=== PATIENT | female | born 1965 | race Caucasian/White ===

== ENCOUNTER 2022-07-31 06:16 | Day surgery (SDC) | payer OTHER, BC, SELFPAY ==
[2022-07-31] VITALS (17 sets, daily range): BP systolic 117–170; BP diastolic 70–98; PULSE 61–81; RESP 16; TEMP 36.1; O2SAT 91–98; BMI 36.1
[2022-07-31] MEDS: SODIUM CHLORIDE 0.9 % (FLUSH) 10 ML SYRINGE IVF (06:45)
[2022-07-31] MEDS: LACTATED RINGERS 1000 ML 1,000 ML 100 ML IV (06:45)
--- NOTE | 2022-07-31 07:01 | SUR.PREOP ---
Patient provided home covid negative results to RN.
[2022-07-31] MEDS: MIDAZOLAM HCL 1 MG/ML inj IVP (07:06)
[2022-07-31] MEDS: fentaNYL 100 MCG/2 ML inj IVP (07:06)
--- NOTE | 2022-07-31 07:06 | SUR.PREOP ---
TIME?OUT:?704 PT/Brisa Marsh RN/Dr. Gus MDA?VERIFICATION?OF?SURGICAL?SITE left shoulder,?PROCEDURE,?AND?CONSENT OBTAINED?PRIOR?TO?INVASIVE?PROCEDURE.
[2022-07-31] MEDS: CEFAZOLIN 2 GM in 0.9 % SODIUM CHLORIDE Mini-bag 100 ML IVPB (07:29)
--- NOTE | 2022-07-31 07:35 | W.PM.NB ---
Nerve Block Nerve Block Time Seen by Provider: 07:09 Date Seen: 07/31/22 Type of block requested by surgeon for post-operative analgesia: supraclavicular Side: left Time out performed: Yes Verification of patient name: Yes Verification of date of : Yes Site marking: site marked Name of person performing procedure: Gus Continuous monitoring Was continuous monitoring of O2 sat, B/P, insurance follow up representative, recorded every 15 minutes?: Yes Procedure Checklist: sterile prep, needles and gloves Ultrasound guided. Images saved: Yes Medications given in 5ml increments after negative aspiration: Ropivicaine %: 0.5 mL: 20 Needle gauge: 22 Decadron (mg): 10 Precedex (mcg): 25 Patient tolerated procedure well: Yes Block Charges Block Charge (with Pro Fee): Brachial Plexus Use of Ultrasound Machine for Block: Yes- US Guidance/pain block
--- NOTE | 2022-07-31 07:36 | W.ANESCHARGE ---
Anesthesia Charges Start Date/Time Anesthesia Start Date: 07/31/22 Anesthesia Start Time: 07:17 Stop Date/Time Anesthesia Stop Date: 07/31/22 Anesthesia Stop Time: 08:40
[2022-07-31] MEDS: EPINEPHrine 1 MG in SODIUM CHLORIDE IRRIG SOLUTION 3,000 ML 3001 MG IRRIGATION ×2 (07:45→08:00)
--- NOTE | 2022-07-31 08:30 | PM.ORPRC ---
Procedure Note Date of procedure: 07/31/22 Procedure: PREOPERATIVE DIAGNOSES: 1. Left shoulder rotator cuff tear, full-thickness supraspinatus 2. Left shoulder subacromial impingement syndrome. POSTOPERATIVE DIAGNOSES: 1. Left shoulder rotator cuff tear - supraspinatus high-grade partial-thickness 2. Left shoulder subacromial impingement syndrome. NAME OF OPERATION: 1. Left shoulder arthroscopic rotator cuff repair. 2. Left shoulder arthroscopic bursectomy, subacromial decompression/partial acromioplasty. SURGEON: Nishant Medina MD FLAG CAR DRIVER: Dallas PIERCE. Of note, a skilled obstetric assistant was critical for this case to aide in patient positioning, suture manipulation, arm positioning, instrument positioning, and closure. ANESTHESIA: General plus preoperative supraclavicular block. EBL: Less than 25 IMPLANTS: Single 4.75 mm BioComposite SwiveLock suture anchor-Arthrex COMPLICATIONS: None evident INDICATIONS: The patient is a pleasant, 57-year-old female who has experienced left shoulder pain that has been increasing in recent time. Physical exam and imaging were consistent with a rotator cuff tear. Given their findings, as well as the weakness and pain, and inadequate response to nonoperative management, recommendation was made for surgery. FINDINGS: Exam under anesthesia revealed stable shoulder with excellent range of motion. The diagnostic arthroscopy revealed healthy chondral surfaces of the glenohumeral joint. The Subscapularis tendon was intact and with a healthy attachment. The long head of the biceps tendon was intact. The superior rotator cuff tendon was found to be torn and high-grade partial-thickness manner more so on the articular side on the anterior aspect. The labrum was overall relatively healthy without significant tearing. No loose bodies were identified within the pouch or subscapularis recess. PROCEDURE: Following a thorough discussion of risks, benefits, and alternatives, consent was obtained and the left shoulder was marked. The patient was brought to the operating room and placed supine on the operating table. Induction of anesthesia was completed after preoperative supraclavicular block was administered in preop holding. Appropriate time out was performed identifying proper patient, site, and procedure. 2 g IV Ancef was administered within 1 hour of incision preoperatively. The left upper extremity was prepped and draped in the appropriate sterile fashion using ChloraPrep prep. This was after the patient was positioned in the beach chair with their head in neutral alignment and all bony prominences well padded. The shoulder was insufflated with 20mL of normal saline via an 18g spinal needle from a posterior approach. An 11 blade skin incision allowed a blunt trochar to be inserted and diagnostic arthroscopy to be performed with the findings as noted above. An anterior portal was established with an outside in technique. This allowed the probe to be inserted and confirm the diagnostic arthroscopic findings. The shaver was then inserted and allowed debridement of rotator interval particularly in adhesed band of the subscapularis to the anterior capsular tissue cephalad. Following this, the upper border subscapularis was probed and found to be stable. Thereafter, the subacromial space was entered. Here, a complete bursectomy and partial acromioplasty/subacromial decompression was performed with a combination of radiofrequency ablator, the shaver, and a 5.5 mm bur. Further inspection of the supraspinatus and infraspinatus rotator cuff was performed. This identified the tear as noted above. The margins of the tear were debrided, and the greater tuberosity was debrided with a combination of the apollo cautery, shaver, and bur on reverse setting. After gentle decortication, single FiberTape suture was passed in a horizontal mattress fashion with the scorpion needle. It was brought to a single anchor further laterally with excellent reapproximation and securing of the rotator cuff. Prior to anchor cement mixer driver removal, the eyelet sutures were tugged on for each anchor and found that the anchor had excellent stability within the bone. The shoulder was placed through range of motion and found to be stable. The rotator cuff was re-probed and found to be stable. Instruments were removed. Excess fluid was drained, closure performed with 4-0 Monocryl and Steri-Strips. Dressings were applied. Sling was applied. The patient was awoken from anesthesia and transferred to the PACU in stable condition. A skilled obstetric assistant was critical for this case to aid in patient positioning, limb positioning, skill to manipulate arthroscopic instruments and camera, suture management, patient safety, and closure. PLAN: 1. Elbow, forearm, wrist and digit range of motion of operative extremity as tolerated. 2. Encouraged ice. 3. Percocet for pain as needed. 4. Sling at all times except for ROM and showering. 5. Follow up with PA visit in 1-2 weeks for wound check. Initiate physical therapy following that visit for passive range of motion. Initiate active assisted range of motion at 3 weeks. May do pendulums now.
--- NOTE | 2022-07-31 08:46 | W.ANESCHARGE ---
Anesthesia Charges Start Date/Time Anesthesia Start Date: 07/31/22 Anesthesia Start Time: 07:17 Stop Date/Time Anesthesia Stop Date: 07/31/22 Anesthesia Stop Time: 08:40
[2022-07-31] MEDS: LACTATED RINGERS 1000 ML 1,000 ML 50 ML IV (08:54)
== END 2022-07-31 11:22 | disposition home or self-care (01) ==
PROVIDERS: PCP Family Medicine; Visit Provider Orthopaedic Surgery Sports Medicine
PROC: (CPT 29805; principal; 2022-07-31 07:30)
DX: M75.122 Complete rotator cuff tear or rupture of left shoulder, not specified as traumatic (principal); M75.42 Impingement syndrome of left shoulder
CPT/HCPCS: 29827; 29826; 01630; 64415; 76942; C1713; J0171; J0330; J0690; J1100; J2250; J2370; J2405; J2704; J2710; J2795; J3010; J7120; L3670

== ENCOUNTER 2023-01-22 14:30 | Outpatient (RCR) | payer OTHER, BC, SELFPAY | END 2023-01-23 11:17 | disposition home or self-care (01) | PROVIDERS: PCP Family Medicine; Visit Provider Orthopaedic Surgery Sports Medicine | DX: M75.102 Unspecified rotator cuff tear or rupture of left shoulder, not specified as traumatic (principal); M75.02 Adhesive capsulitis of left shoulder; M19.012 Primary osteoarthritis, left shoulder; M75.42 Impingement syndrome of left shoulder; Z98.890 Other specified postprocedural states; R53.1 Weakness; R52 Pain, unspecified; Z51.89 Encounter for other specified aftercare | CPT/HCPCS: 97032; 97110; 97140; 97161; 97164; 97535 ==

== ENCOUNTER 2024-07-30 08:45 | Outpatient (RCR) | payer BC, SELFPAY | END 2024-11-27 23:59 | disposition home or self-care (01) | PROVIDERS: PCP Family Medicine; Visit Provider Family Medicine | DX: M79.18 Myalgia, other site (principal); M25.552 Pain in left hip; Z51.89 Encounter for other specified aftercare | CPT/HCPCS: 97110; 97140; 97161 ==

== ENCOUNTER 2025-03-30 09:00 | Outpatient (RCR) | payer BC, SELFPAY | END 2025-04-10 11:25 | disposition home or self-care (01) | PROVIDERS: PCP Family Medicine; Visit Provider Orthopaedic Surgery Sports Medicine | DX: Z48.89 Encounter for other specified surgical aftercare (principal); S73.199D Other sprain of unspecified hip, subsequent encounter; Z51.89 Encounter for other specified aftercare | CPT/HCPCS: 97110; 97116; 97140; 97161 ==